=== PATIENT | female | born 1970 | race Caucasian/White ===

== ENCOUNTER 2016-10-10 12:12 | Emergency (ER) | payer MEDICAID, OTHER ==
[~2016-10-10] VITALS: Wt 75.5 kg
[~2016-10-10 12:12] MED LIST: ERYTOPOI RIGHT EYE; IBUP-1542 PO
[2016-10-10] MEDS ORDERED: BELLADONNA/PHENOBARBITAL TAB PO STA (12:58)
[2016-10-10] MEDS ORDERED: morphine 4 MG/ML VIAL IV STA (12:58)
[2016-10-10] MEDS ORDERED: SOD CHLORIDE 0.9% 1,000 ML IV STA (12:58)
[2016-10-10] MEDS ORDERED: FAMOTIDINE 20 MG INJ IV STA (12:58)
[2016-10-10] MEDS ORDERED: LIDOCAINE/MYLANTA 40 ML BTL PO STA (12:58)
[2016-10-10] MEDS ORDERED: ONDANSETRON 4 MG INJ IV STA (12:58)
[2016-10-10 13:45] LABS: ADD SCAN DIFF NO
[2016-10-10 13:46] LABS: BASOPHILS % 0.3 % (0.0-2.0); EOSINOPHILS # 0.2 10^3/ul (0.0-0.5); HEMATOCRIT 40.6 % (37.0-47.0); HEMOGLOBIN 13.4 g/dl (12.0-16.0); LYMPHOCYTES # 2.1 10^3/ul (0.8-2.9); MEAN CORPUSCULAR VOLUME 90.8 fl (82.0-101.0); MEAN PLATELET VOLUME 10.4 fl (7.4-10.4); MONOCYTE # 0.6 10^3/ul (0.3-0.9); MONOCYTES % 8.4 % (0.0-11.0); NEUTROPHIL # 4.5 10^3/ul (1.6-7.5); NEUTROPHILS % 60.9 % (39.0-77.0); PLATELET COUNT 245 10^3/UL (140-415); RED BLOOD COUNT 4.47 10^6/ul (4.20-5.40); RED CELL DISTRIBUTION WIDTH 11.4 % (11.5-14.5); WHITE BLOOD COUNT 7.4 10^3/ul (4.8-10.8)
[2016-10-10 13:50] LABS: ADD UMIC NO; URINE BILIRUBIN (Dip) NEGATIVE (NEGATIVE); URINE BLOOD (Dip) NEGATIVE (NEGATIVE); URINE COLOR LT. YELLOW (YELLOW); URINE GLUCOSE (Dip) NEGATIVE (NEGATIVE); URINE KETONES (Dip) NEGATIVE (NEGATIVE); URINE LEUKOCYTE ESTERASE (Dip) NEGATIVE (NEGATIVE); URINE NITRITE (Dip) NEGATIVE (NEGATIVE); URINE TOTAL PROTEIN (Dip) NEGATIVE (NEGATIVE); URINE UROBILINOGEN (Dip) 0.2 E.U./dL (0.1-1.0)
[2016-10-10 13:55] LABS: ALBUMIN 4.1 g/dl (3.3-4.9); POTASSIUM 3.8 mmol/L (3.5-5.1)
--- NOTE | 2016-10-10 13:55 | RADRPT ---
PROCEDURE: CT Abdomen and Pelvis without contrast. CLINICAL INDICATION: Abdominal and pelvic pain. Bloating, and nausea. History of cholecystectomy . TECHNIQUE: CT scan of the abdomen and pelvis without contrast was performed. Coronal and sagittal reformatted images were obtained from the axial source images. Images were reviewed on a high-resolu [employer] PACS workstation. Total exam DLP is 598.22 mGy-cm. CTDIvol is 10.60 mGy. One or more of the f ollowing dose reduction techniques were used: Automated exposure control, adjustment of the mA and/o r kV according to patient size, use of iterative reconstruction technique. COMPARISON: None. FINDINGS: The lung bases are normal. There is no pleural effusion. The liver is normal in size and attenuation. There is no focal hepatic lesion. The gallbladder is surgically absent with clips noted in the gallbladder bed. The bile ducts are no rmal. The spleen is normal in size. There is no focal splenic lesion. Both adrenals are normal with no enlargement or mass. The pancreas is unremarkable with no mass or evidence of pancreatitis. There is no renal mass or hydronephrosis. There is a nonobstructing 0.1 cm calculus in the lower lef t kidney. There is no other renal calculus or ureteral calculus. The abdominal aorta is not dilated. There is no retroperitoneal lymphadenopathy or mass. There is no pelvic lymphadenopathy or mass. The bladder and distal ureters are normal. The periappendiceal region is unremarkable with no evidence of appendicitis. The appendix is well se en and appears normal. The bowel and mesentery are normal. There is no free fluid or free gas. There are degenerative changes of the lower lumbar spine. There is no fracture or lytic lesion. IMPRESSION: 1. Status post cholecystectomy. 2. Nonobstructing 0.1 cm calculus in the lower left kidney. 3. Normal appendix. 4. Degenerative changes of the lower lumbar spine. RPTAT: QQ .Akin Santamaria MD, MD Date Time Electronically viewed and signed by .Akin Santamaria MD, on 10/10/2016 13:54 .R/
[2016-10-10 13:57] LABS: CREATININE 0.77 mg/dl (0.44-1.00)
[2016-10-10 13:58] LABS: ALBUMIN/GLOBULIN RATIO 1.28; BILIRUBIN,INDIRECT 0.2 mg/dl (0-1.1); BILIRUBIN,TOTAL 0.2 mg/dl (0.2-1.3); TOTAL PROTEIN 7.3 g/dl (6.1-8.1)
[2016-10-10] MEDS ORDERED: ONDA4TAB8 PO (14:12)
[2016-10-10] MEDS ORDERED: TRAM50TA2 PO (14:12)
[2016-10-10 14:24] VITALS: BP 117/70; PULSE 65; RESP 20; TEMP 98.3
--- NOTE | 2016-10-10 14:53 | ERD ---
ER Documentation Chief Complaint Date/Time DATE: 10/10/16 TIME: 14:46 Chief Complaint ABD BLOATING/PAIN, NAUSEA, ONSET 3 DAYS HPI This is a 46-year-old female that presents to the ER with generalized abdominal pain and bloating that is been going on for the last week. Patient complains of nausea however denies vomiting. Patient does admit to bouts of diarrhea which have been occurring chronically. Patient has a past medical history of an ulcer secondary to NSAID use and has her gallbladder taken out. Abdominal pain is described as crampy in nature it is intermittent. She denies any fevers or chills. She denies any urinary frequency or dysuria. She denies any hematuria. Patient denies any chest pain or shortness of breath. ROS 12 point review of systems was done, all negative except per HPI. Medications Home Meds Active Scripts Tramadol HCl (Tramadol HCl) 50 Mg Tablet, 50 MG PO Q4 Y for PAIN, #20 TAB Prov:GRACE CRESPO 10/10/16 Ondansetron Hcl* (Zofran*) 4 Mg Tablet, 4 MG PO Q6H for NAUSEA AND/OR VOMITING, #30 TAB Prov:GRACE CRESPO 10/10/16 Ibuprofen* (Motrin*) 600 Mg Tab, 600 MG PO Q6H Y for PAIN, #14 TAB Prov:IRIS HIRSCH MD 03/19/16 Erythromycin* (Erythromycin* Ophthalmic) 1 Applic Oint, 1 APPLIC RIGHT EYE QID for 7 Days, #1 TUB Prov:IRIS HIRSCH MD 03/19/16 Ibuprofen* (Motrin*) 600 Mg Tab, 600 MG PO Q6H Y for PAIN AND OR ELEVATED TEMP, #30 TAB Prov:BEBO PHILLIPS MD 01/25/16 Allergies Allergies: Coded Allergies: No Known Allergy (Unverified , 08/14/15) PMhx/Soc History of Surgery: Yes (gallbladder removal, ) Anesthesia Reaction: No Hx Neurological Disorder: No Hx Respiratory Disorders: No Hx Cardiac Disorders: No Hx Psychiatric Problems: No Hx Miscellaneous Medical Probl: Yes (hypothyroidism, oa) Hx Alcohol Use: No Hx Substance Use: No Hx Tobacco Use: No Smoking Status: Never smoker Physical Exam Vitals Vital Signs Date Time Temp Pulse Resp B/P Pulse Ox O2 Delivery O2 Flow Rate FiO2 10/10/16 14:24 98.3 65 20 117/70 100 Room Air 10/10/16 12:14 100.5 92 17 118/74 97 Physical Exam GENERAL: The patient is well developed and appropriate for usual state of health , in no apparent distress. HEENT: Atraumatic. CHEST: Clear to auscultation bilaterally. There are no rales, wheezes or rhonchi. HEART: Regular rate and rhythm. No murmurs, clicks, rubs or gallops. ABDOMEN: Soft, nontender and nondistended. Good bowel sounds. No rebound or guarding. No gross peritonitis. No gross organomegaly or masses. No Arcos sign or McBurney point tenderness. NEURO: Alert and oriented. SKIN: The skin is warm and dry. Result Diagram: 10/10/16 1315 10/10/16 1315 Results 24 hrs Laboratory Tests Test 10/10/16 13:05 10/10/16 13:15 Urine Bilirubin NEGATIVE Urine Clarity CLEAR Urine Color LT. YELLOW Urine Glucose NEGATIVE% Urine Hemoglobin NEGATIVE Urine Ketones NEGATIVE Urine Leukocyte Esterase NEGATIVE Urine Nitrite NEGATIVE Urine Specific [place] 1.020 Urine Total Protein NEGATIVE Urine Urobilinogen 0.2 E.U./dL Urine pH 6.5 Alanine Aminotransferase (ALT/SGPT) 31IU/L Albumin 4.1g/dl Albumin/Globulin Ratio 1.28 Alkaline Phosphatase 81IU/L Anion Gap 17 Aspartate Amino Transf (AST/SGOT) 22IU/L Basophils # 0.010^3/ul Basophils % 0.3% Blood Urea Nitrogen 16mg/dl Calcium Level 9.0mg/dl Carbon Dioxide Level 27mmol/L Chloride Level 103mmol/L Creatinine 0.77mg/dl Direct Bilirubin 0.00mg/dl Eosinophils # 0.210^3/ul Eosinophils % 2.0% Globulin 3.20g/dl Glucose Level 79mg/dl Hematocrit 40.6% Hemoglobin 13.4g/dl Indirect Bilirubin 0.2mg/dl Lipase 111U/L Lymphocytes # 2.110^3/ul Lymphocytes % 28.0% Mean Corpuscular Hemoglobin 30.0pg Mean Corpuscular Hemoglobin Concent 33.0g/dl Mean Corpuscular Volume 90.8fl Mean Platelet Volume 10.4fl Monocytes # 0.610^3/ul Monocytes % 8.4% Neutrophils # 4.510^3/ul Neutrophils % 60.9% Nucleated Red Blood Cells # 0.010^3/ul Nucleated Red Blood Cells % 0.0/100WBC Platelet Count 96263^3/UL Potassium Level 3.8mmol/L Red Blood Count 4.4710^6/ul Red Cell Distribution Width 11.4% Sodium Level 143mmol/L Total Bilirubin 0.2mg/dl Total Protein 7.3g/dl White Blood Count 7.410^3/ul Current Medications Medications (Trade) Dose Ordered Sig/[place] Route PRN Reason Start Time Stop Time Status Last Admin Dose Admin Sodium Chloride (NS) 1,000 ml @ 1,000 mls/hr Q1H STAT IV 10/10/16 12:58 10/10/16 13:57 DC 10/10/16 13:18 Morphine Sulfate (morphine) 4 mg ONCE STAT IV 10/10/16 12:58 10/10/16 13:00 DC 10/10/16 13:19 Ondansetron HCl (Zofran Inj) 4 mg ONCE STAT IV 10/10/16 12:58 10/10/16 13:00 DC 10/10/16 13:19 Famotidine (Pepcid Iv) 20 mg ONCE STAT IV 10/10/16 12:58 10/10/16 13:00 DC 10/10/16 13:19 Miscellaneous Medication (Gi Cocktail (2)) 40 ml ONCE STAT PO 10/10/16 12:58 10/10/16 13:00 DC 10/10/16 13:19 [place]/ Phenobarbital () 2 tab ONCE STAT PO 10/10/16 12:58 10/10/16 13:00 DC 10/10/16 13:18 Procedures/MDM This is a 46-year-old female presents to the ER with generalized abdominal pain. Differential Diagnosis: GERD, gastritis, peptic ulcer disease, pancreatitis, cholecystitis, choledocholithiasis, biliary colic, cholangitis, [id number], ACS/ME, Pnuemonia. At this time patient was found to have a kidney stone. This may be the etiology of patient's abdominal pain. There is no evidence of acute abdomen at this time. Her physical examination is benign she is afebrile and well-appearing. Patient will be sent home with tramadol with Zofran. She is to follow-up with her primary care doctor within 1-2 days return to ER sooner if symptoms worsen. My medical decision making was shared with the patient she understands and agrees with plan Departure Diagnosis: Primary Impression: Abdominal pain Condition: Stable Patient Instructions: Abdominal Pain Additional Instructions: Call your primary care doctor TOMORROW for an appointment during the next 1-2 days.See the doctor sooner or return here if your condition worsens before your appointment time. GRACE CRESPO Oct 10, 2016 14:53
== END 2016-10-10 14:26 | disposition home or self-care (01) ==
LOC: FTE 12:12
DX: R10.84 Generalized abdominal pain (principal); R11.0 Nausea; E03.9 Hypothyroidism, unspecified; R10.2 Pelvic and perineal pain
CPT/HCPCS: 36415; 74176; 80053; 81003; 83690; 85025; 96374; 96375; J2270; J2405; J7030; Z7502; Z7610

== ENCOUNTER 2017-03-24 21:37 | Emergency (ER) | payer MEDICAID, OTHER ==
[~2017-03-24] VITALS: Ht 162.6 cm; Wt 74.5 kg
[~2017-03-24 21:37] MED LIST changes: +ONDA4TAB8 PO; +TRAM50TA2 PO
[2017-03-24 21:40] VITALS: Ht 162.6 cm; Wt 74.5 kg
--- NOTE | 2017-03-24 23:47 | ERD ---
ER Documentation Chief Complaint Date/Time DATE: 03/24/17 TIME: 23:42 Chief Complaint epigastric pain w/ vomiting x 1 day, headache HPI This 46-year-old female presents to emergency department for nausea, vomiting x 6 with headache today, symptoms started at 2044 after breaking her fast. Denies history of migraine, but has gotten headaches when she is fasting in the past. Patient reports epigastric burning denies history of heartburn. Patient denies history of chest pain, shortness of breath, palpitations, or dizziness, denies history of diabetes mellitus hypertension or hyperlipidemia.. ROS All systems reviewed and are negative except as per history of present illness. Medications Home Meds Active Scripts Ranitidine Hcl* (Zantac*) 150 Mg Tablet, 150 MG PO BID Y for EPIGASTRIC PAIN, # 30 TAB Prov:GERTRUDE,CHRIS 03/25/17 Ondansetron Hcl* (Zofran*) 4 Mg Tablet, 4 MG PO Q6H for NAUSEA AND/OR VOMITING, #10 TAB Prov:GERTRUDE,CHRIS 03/25/17 Hydrocodone/Acetaminophen ([place] 5-325 Tablet) 1 Each Tablet, 1 TAB PO Q6H Y for PAIN, #20 TAB Prov:GERTRUDE,CHRIS 03/25/17 Tamsulosin Hcl* (Flomax*) 0.4 Mg Cap.er.24h, 0.4 MG PO DAILY, #30 CAP Prov:GERTRUDE,CHRIS 03/25/17 Tramadol HCl (Tramadol HCl) 50 Mg Tablet, 50 MG PO Q4 Y for PAIN, #20 TAB Prov:CHERIECHARGRACE C 10/10/16 Ondansetron Hcl* (Zofran*) 4 Mg Tablet, 4 MG PO Q6H for NAUSEA AND/OR VOMITING, #30 TAB Prov:CHERIECHARGRACE C 10/10/16 Ibuprofen* (Motrin*) 600 Mg Tab, 600 MG PO Q6H Y for PAIN, #14 TAB Prov:IRIS HIRSCH MD 03/19/16 Erythromycin* (Erythromycin* Ophthalmic) 1 Applic Oint, 1 APPLIC RIGHT EYE QID for 7 Days, #1 TUB Prov:IRIS HIRSCH MD 03/19/16 Ibuprofen* (Motrin*) 600 Mg Tab, 600 MG PO Q6H Y for PAIN AND OR ELEVATED TEMP, #30 TAB Prov:BEBO PHILLIPS MD 01/25/16 Allergies Allergies: Coded Allergies: No Known Allergy (Unverified , 08/14/15) PMhx/Soc History of Surgery: Yes (gallbladder removal, ) Anesthesia Reaction: No Hx Neurological Disorder: No Hx Respiratory Disorders: No Hx Cardiac Disorders: No Hx Psychiatric Problems: No Hx Miscellaneous Medical Probl: Yes (hypothyroidism, oa) Hx Alcohol Use: No Hx Substance Use: No Hx Tobacco Use: No Smoking Status: Never smoker Physical Exam Vitals Vital Signs Date Time Temp Pulse Resp B/P Pulse Ox O2 Delivery O2 Flow Rate FiO2 03/24/17 21:40 97.7 76 20 138/77 100 Physical Exam Const: Well-hydrated well-nourished well-appearing no acute distress obvious discomfort Head: Eyes: ENT: Normal External Ears, Nose and Mouth. Sorin membranes moist Neck: Resp: Clear to auscultation bilaterally no rales wheezes or rhonchi Cardio: Regular rate and rhythm, no murmurs Abd: Abdomen soft, generalized tenderness, no CVA tenderness Skin: Back: Left low back pain negative CVA tenderness Ext: Neur: Awake and alert Psych: Normal Mood and Affect Result Diagram: 03/24/17 0010 03/24/17 0010 Results 24 hrs Laboratory Tests Test 03/24/17 00:10 03/25/17 00:30 White Blood Count 8.010^3/ul Red Blood Count 4.6210^6/ul Hemoglobin 13.7g/dl Hematocrit 41.3% Mean Corpuscular Volume 89.4fl Mean Corpuscular Hemoglobin 29.7pg Mean Corpuscular Hemoglobin Concent 33.2g/dl Red Cell Distribution Width 11.7% Platelet Count 80069^3/UL Mean Platelet Volume 10.5fl Neutrophils % 82.4% Lymphocytes % 15.2% Monocytes % 2.0% Eosinophils % 0.1% Basophils % 0.1% Nucleated Red Blood Cells % 0.0/100WBC Neutrophils # (Manual) 6.610^3/ul Lymphocytes # 1.210^3/ul Monocytes # 0.210^3/ul Eosinophils # 0.010^3/ul Basophils # 0.010^3/ul Nucleated Red Blood Cells # 0.010^3/ul Sodium Level 140mmol/L Potassium Level 3.9mmol/L Chloride Level 105mmol/L Carbon Dioxide Level 23mmol/L Anion Gap 16 Blood Urea Nitrogen 19mg/dl Creatinine 0.72mg/dl Glucose Level 101mg/dl Calcium Level 9.3mg/dl Total Bilirubin 0.6mg/dl Direct Bilirubin 0.00mg/dl Indirect Bilirubin 0.6mg/dl Aspartate Amino Transf (AST/SGOT) 23IU/L Alanine Aminotransferase (ALT/SGPT) 35IU/L Alkaline Phosphatase 93IU/L Total Protein 7.8g/dl Albumin 4.1g/dl Globulin 3.70g/dl Albumin/Globulin Ratio 1.10 Lipase 124U/L Urine Color YELLOW Urine Clarity CLEAR Urine pH 7.0 Urine Specific [place] 1.008 Urine Ketones 1+mg/dL Urine Nitrite POSITIVEmg/dL Urine Bilirubin NEGATIVEmg/dL Urine Urobilinogen NEGATIVEmg/dL Urine Leukocyte Esterase NEGATIVELeu/ul Urine Microscopic RBC 0/HPF Urine Microscopic WBC 3/HPF Urine Bacteria FEW/HPF Urine Mucus FEW/HPF Urine Hemoglobin NEGATIVEmg/dL Urine Glucose NEGATIVEmg/dL Urine Total Protein NEGATIVEmg/dl Current Medications Medications (Trade) Dose Ordered Sig/[place] Route PRN Reason Start Time Stop Time Status Last Admin Dose Admin Sodium Chloride (NS) 1,000 ml @ 1,000 mls/hr Q1H STAT IV 03/24/17 23:48 03/25/17 00:47 DC 03/25/17 00:28 Famotidine (Pepcid Iv) 20 mg ONCE STAT IV 03/24/17 23:48 03/24/17 23:53 DC 03/25/17 00:27 Ketorolac Tromethamine (Toradol) 15 mg ONCE STAT IV 03/24/17 23:48 03/24/17 23:53 DC 03/25/17 00:28 Ondansetron HCl (Zofran Inj) 4 mg ONCE STAT IV 03/24/17 23:48 03/24/17 23:53 DC 03/25/17 00:27 I Interpretation text CBC shows no evidence of hemorrhage or infection Chemistry shows no evidence of significant electrolyte abnormalities or renal insufficiency Liver function tests shows no evidence of acute biliary or hepatic dysfunction Urinalysis positive for nitrates suggestive of infection Procedures/MDM PROCEDURE: CT ABDOMEN AND PELVIS WITHOUT CONTRAST: CLINICAL INDICATION: 46 years of age, female , abdominal pain. Evaluate for nephrolithiasis. COMPARISON: None available. TECHNIQUE: CT of the abdomen and pelvis was performed without intravenous contrast. Oral contrast was not administered prior to the examination. Coronal and sagittal reformatted images were obtained from the axial source images. Images were reviewed on a high-resolution PACS workstation. Dose information: Based on a 32 cm phantom, the estimated radiation dose (CTDI vol mGy) for each series in this exam is 11.7. The estimated cumulative dose ( DLP mGy-cm) is 675. FINDINGS: In the absence of intravenous contrast, the study constitutes a limited assessment of the solid organs, bowel and vessels. LUNG BASES: Normal noncontrast appearance. ABDOMEN/PELVIS: Liver: Normal noncontrast appearance. Gallbladder: Status post cholecystectomy. Bile ducts: No intrahepatic or extrahepatic biliary duct dilatation. Spleen: Normal noncontrast appearance. Pancreas: Normal noncontrast appearance. Adrenal glands: Normal noncontrast appearance. Kidneys and ureters: Punctate 0.1 cm nonobstructing calculus lower pole left kidney. Negative for ureteral calculi or hydronephrosis. 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 Kidneys otherwise appear normal. Aorta and IVC: Normal noncontrast appearance. Lymph nodes: Normal noncontrast appearance. Gastrointestinal tract: Normal noncontrast appearance. Appendix: Normal Bladder: Normal noncontrast appearance. Pelvic Organs: The uterus is retroflexed. Ovaries and adnexa are unremarkable. Peritoneal cavity: No free fluid or free intraperitoneal air. Abdominal wall: Normal noncontrast appearance. BONES: Musculoskeletal: Degenerative changes in lumbar spine. No suspicious bone lesions. IMPRESSION: Punctate nonobstructing calculus left kidney. Negative for ureteral calculi or hydronephrosis. Electronically viewed and signed by Jose Rich Physician on 03/25/2017 01: 27 This pleasant 46-year-old female presents to emergency department today for epigastric burning, nausea, vomiting, and left-sided back pain. Patient has history of kidney stones. Reports that she was fasting all day symptoms started after she has broke her fast, patient reports headache frontal, patient denies knowing exactly when headaches started, is not the worst headache she has ever felt in her life. Patient is not symptomatic for subarachnoid bleed, subdural hematoma, CVA, giant cell arteritis, bowel obstruction, patient's emergency room course includes pain control with Toradol, Zofran for nausea, and liter of IV fluids, patient given Pepcid for gastric burning. CAT scan ordered to evaluate nephrolithiasis with radiology impression as punctate nonobstructing calculus in the left kidney negative for ureteral calculi or hydroureter nephrosis. Patient laboratory testing unremarkable for acute infection, anemia, electrolyte imbalance, or renal insufficiency. Urinalysis positive for nitrates suggestive and infection. Patient reassessed after treatments reports improvement of symptoms plan to discharge patient home with Zofran, [place], and Zantac, and Flomax. And Keflex 500 mg 3 times daily 7 days instructed to follow-up with primary care physician for reevaluation and planned for suspected gastritis, and confirmed renal lithiasis. Patient is stable with no new complaints during ER course, clinically there is no current evidence to suggest meningitis, sepsis, acute abdomen, acute coronary syndromes , pulmonary embolism or any other emergent condition appearing to require further evaluation or hospitalization. I feel the patient is stable for discharge at this time. I have discussed results, examination findings, the treatment plan with the patient and family present prior to discharge. Indications for emergent reevaluation, side effects of medication were also discussed. All questions were answered. Patient verbalizes understanding and agrees with plan of care. Departure Diagnosis: Primary Impression: Epigastric pain Additional Impressions: UTI (urinary tract infection) Urinary tract infection type: site unspecified Hematuria presence: without hematuria Qualified Code: N39.0 - Urinary tract infection without hematuria, site unspecified Nephrolithiasis Condition: Fair Patient Instructions: Epigastric Pain (Uncertain Cause), Kidney Stone (Urine), Treating Kidney Stones: Medications, Understanding Urinary Tract Infections ( UTIs) Referrals: [facility] Additional Instructions: Thank you for for coming to [facility] for your care today. Please ask your nurse or provider if you have questions about your care today and do not leave until all your questions have been answered. Please use any medications given as directed and follow-up with your doctor (or the doctor you were referred to) in the next 2-3 days. If you do not have a primary care doctor you may follow up at the [facility] (listed below). You may also use motrin and tylenol as needed for fever and/or pain unless instructed otherwise by your provider or nurse. Indications for more urgent follow-up have been discussed, but you may return to the Emergency Department at ANY time for any worrisome or worsening symptoms. If you have abdominal pain, please know that no test or exam you received is perfect and you should follow up within 8 hours for continued pain. If you had any imaging studies today, such as an X-Ray or CT Scan, these studies will be reviewed later by a radiologist. You will be called if there are important findings that were not identified today, so make sure the contact information you provided at registration is correct. If you received any narcotic pain control medicine today, such as Vicodin, Morphine or Dilaudid, your coordination and judgment may be affected for a number of hours. Please do not drive or operate heavy machinery, and you may want someone to assist you at home. If you were given a prescription for narcotic medication, be aware that it is very addictive- use sparingly and only if necessary. CHRIS LOREDO Mar 24, 2017 23:46
[2017-03-24] MEDS ORDERED: SOD CHLORIDE 0.9% 1,000 ML IV STA (23:48)
[2017-03-24] MEDS ORDERED: KETOROLAC 15 MG INJ IV STA (23:48)
[2017-03-24] MEDS ORDERED: ONDANSETRON 4 MG INJ IV STA (23:48)
[2017-03-24] MEDS ORDERED: FAMOTIDINE 20 MG INJ IV STA (23:48)
[2017-03-25 01:28] LABS: BASOPHILS % 0.1 % (0.0-2.0); EOSINOPHILS % 0.1 % (0.0-7.0); HEMATOCRIT 41.3 % (37.0-47.0); HEMOGLOBIN 13.7 g/dl (12.0-16.0); LYMPHOCYTES # 1.2 10^3/ul (0.8-2.9); LYMPHOCYTES % 15.2 % (15.0-51.0); MEAN CORPUSCULAR HEMOGLOBIN 29.7 pg (29.0-33.0); MEAN CORPUSCULAR HGB CONC 33.2 g/dl (32.0-37.0); MEAN CORPUSCULAR VOLUME 89.4 fl (82.0-101.0); MEAN PLATELET VOLUME 10.5 fl (7.4-10.4); MONOCYTE # 0.2 10^3/ul (0.3-0.9); NEUTROPHILS % 82.4 % (39.0-77.0); PLATELET COUNT 235 10^3/UL (140-415); RED BLOOD COUNT 4.62 10^6/ul (4.20-5.40); RED CELL DISTRIBUTION WIDTH 11.7 % (11.5-14.5)
--- NOTE | 2017-03-25 01:28 | RADRPT ---
AMENDMENT: 04/02/2017 10:50:09 PM Ana Rich M.D One or more of the following dose reduction techniques were used: - Automated exposure control. - Adjustment of the mA and/or kV according to patient size. - Use of iterative reconstruction technique. PROCEDURE: CT ABDOMEN AND PELVIS WITHOUT CONTRAST: CLINICAL INDICATION: 46 years of age, female , abdominal pain. Evaluate for nephrolithiasis. COMPARISON: None available. TECHNIQUE: CT of the abdomen and pelvis was performed without intravenous contrast. Oral contrast wa s not administered prior to the examination. Coronal and sagittal reformatted images were obtained from the axial source images. Images were revi ewed on a high-resolution PACS workstation. Dose information: Based on a 32 cm phantom, the estimated radiation dose (CTDI vol mGy) for each ser ies in this exam is 11.7. The estimated cumulative dose (DLP mGy-cm) is 675. FINDINGS: In the absence of intravenous contrast, the study constitutes a limited assessment of the solid orga ns, bowel and vessels. LUNG BASES: Normal noncontrast appearance. ABDOMEN/PELVIS: Liver: Normal noncontrast appearance. Gallbladder: Status post cholecystectomy. Bile ducts: No intrahepatic or extrahepatic biliary duct dilatation. Spleen: Normal noncontrast appearance. Pancreas: Normal noncontrast appearance. Adrenal glands: Normal noncontrast appearance. Kidneys and ureters: Punctate 0.1 cm nonobstructing calculus lower pole left kidney. Negative for u reteral calculi or hydronephrosis. 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 Kidneys otherwise appear normal. Aorta and IVC: Normal noncontrast appearance. Lymph nodes: Normal noncontrast appearance. Gastrointestinal tract: Normal noncontrast appearance. Appendix: Normal Bladder: Normal noncontrast appearance. Pelvic Organs: The uterus is retroflexed. Ovaries and adnexa are unremarkable. Peritoneal cavity: No free fluid or free intraperitoneal air. Abdominal wall: Normal noncontrast appearance. BONES: Musculoskeletal: Degenerative changes in lumbar spine. No suspicious bone lesions. IMPRESSION: Punctate nonobstructing calculus left kidney. Negative for ureteral calculi or hydronephrosis. RPTAT: HCTS Jose Rich, Physician Date Time Electronically viewed and signed by Jose Rich Physician on 04/02/2017 22:51 CS/
[2017-03-25 01:47] LABS: ALBUMIN 4.1 g/dl (3.3-4.9); ALBUMIN/GLOBULIN RATIO 1.1; BILIRUBIN,INDIRECT 0.6 mg/dl (0-1.1); BILIRUBIN,TOTAL 0.6 mg/dl (0.2-1.3); CALCIUM 9.3 mg/dl (8.4-10.2); CREATININE 0.72 mg/dl (0.44-1.00); POTASSIUM 3.9 mmol/L (3.5-5.1); TOTAL PROTEIN 7.8 g/dl (6.1-8.1)
[2017-03-25 02:18] LABS: ADD UMIC YES; UR ASCORBIC ACID NEGATIVE (NEGATIVE); UR BACTERIA FEW /HPF (NONE SEEN); UR BILIRUBIN (Dip) NEGATIVE (NEGATIVE); UR BLOOD (Dip) NEGATIVE (NEGATIVE); UR CLARITY CLEAR (CLEAR); UR COLOR YELLOW (YELLOW); UR GLUCOSE (Dip) NEGATIVE (NEGATIVE); UR KETONES (Dip) 1+ mg/dL (NEGATIVE); UR LEUKOCYTE ESTERASE (Dip) NEGATIVE Leu/ul (NEGATIVE); UR MUCUS FEW /HPF (NONE SEEN); UR NITRITE (Dip) POSITIVE (NEGATIVE); UR RBC 0 /HPF (0-5); UR SPECIFIC GRAVITY (Dip) 1.008 (1.003-1.030); UR TOTAL PROTEIN (Dip) NEGATIVE (NEGATIVE); UR UROBILINOGEN (Dip) NEGATIVE (NEGATIVE)
[2017-03-25] MEDS ORDERED: TAMS-14 PO ×2 (02:43→02:44)
[2017-03-25] MEDS ORDERED: ONDA4TAB8 PO (02:45)
[2017-03-25] MEDS ORDERED: RANI150T9 PO (02:45)
[2017-03-25] MEDS ORDERED: HYDR-906 PO (02:45)
[2017-03-25] MEDS ORDERED: CEPH-443 PO (02:51)
[2017-03-25 03:04] VITALS: BP 108/71; PULSE 81; RESP 16
== END 2017-03-25 03:13 | disposition home or self-care (01) ==
LOC: FTE 21:37
DX: R10.13 Epigastric pain (principal); N39.0 Urinary tract infection, site not specified; N20.0 Calculus of kidney; E03.9 Hypothyroidism, unspecified; R11.2 Nausea with vomiting, unspecified
CPT/HCPCS: 36415; 74176; 80053; 81001; 83690; 85025; 96374; 96375; J1885; J2405; J7030; Z7502; Z7610

== ENCOUNTER 2018-04-13 18:45 | Emergency (ER) | END 2018-04-13 20:55 | disposition left against medical advice (07) ==

== ENCOUNTER 2018-04-14 11:34 | Emergency (ER) | END 2018-04-14 13:26 | disposition home or self-care (01) ==

== ENCOUNTER 2018-07-24 09:49 | Emergency (ER) | END 2018-07-24 15:23 | disposition home or self-care (01) ==